=== PATIENT | male | born 1995 | race Caucasian/White ===

== ENCOUNTER 2019-01-09 16:40 | Emergency (ER) | payer OTHER ==
--- NOTE | 2019-01-09 16:59 | PDOC ---
Rapid Medical Evaluation Chief Complaint: Overdose Medical Evaluation: 01/09/19 16:55 I have performed a brief in-person evaluation of this patient. The patient presents with a chief complaint of: inhalation injury- using "dustoff" computer dry cleaner hand huffing- is intoxicated and jittery, + LOC with incontinence of urine - roused ~ 1 hour ago. Pertinent physical exam findings: Inhaltion - rehabing from Benzos/etoh pupils dialted I have ordered the following: taken to bed 9 for immediate eval. The patient will proceed to the ED for further evaluation 01/09/19 16:58 01/09/19 17:20
[2019-01-09 17:00] VITALS: BP 139/73; PULSE 84; TEMP 98.4; BMI 29.4
--- NOTE | 2019-01-10 09:46 | PDOC ---
History of Present Illness - General Chief Complaint: Overdose Stated Complaint: INHALER OVERUSE Time Seen by Provider: 01/09/19 17:25 History Source: Patient Exam Limitations: No Limitations - History of Present Illness Initial Comments: 01/10/19 09:41 Patient is a 23M with history of alcohol and benzo abuse here today after being found to have been huffing Dustoff computer spray. Patient states that he has been doing this for the past several days to get high. Patient state that he lost consciousness and became incontinent of urine, which is normal when he does this. Patient was found by his sober living facility. This happened on at 1pm. Patient states that he is now in his normal state of health. Patient is concerned that he must leave quickly in order to get into a new sober living facility. Past History - Past Medical History Allergies/Adverse Reactions: Allergies Allergy/AdvReac Type Severity Reaction Status Date / Time No Known Allergies Allergy Verified 01/09/19 16:56 COPD: No - Immunization History Immunization Up to Date: Yes - Suicide/Smoking/Psychosocial Hx Smoking History: Never smoked Hx Alcohol Use: No Drug/Substance Use Hx: No Review of Systems - Review of Systems Able to Perform ROS?: Yes Comments:: 01/10/19 09:43 GENERAL/CONSTITUTIONAL: No fever or chills. No weakness. HEAD, EYES, EARS, NOSE AND THROAT: No change in vision.No sore throat. CARDIOVASCULAR: No chest pain or shortness of breath RESPIRATORY: No cough, wheezing, or hemoptysis. GASTROINTESTINAL: No nausea, vomiting, diarrhea or constipation. GENITOURINARY: No dysuria, frequency, or change in urination. MUSCULOSKELETAL: No joint or muscle swelling or pain. No neck or back pain. SKIN: No rash NEUROLOGIC: No headache, vertigo, +loss of consciousness, no change in strength/ sensation. ENDOCRINE: No increased thirst. No abnormal weight change HEMATOLOGIC/LYMPHATIC: No anemia, easy bleeding, or history of blood clots. ALLERGIC/IMMUNOLOGIC: No hives or skin allergy. *Physical Exam - Vital Signs Last Vital Signs Temp Pulse Resp BP Pulse Ox 98.4 F 84 16 139/73 100 01/09/19 16:56 01/09/19 16:56 01/09/19 16:56 01/09/19 16:56 01/09/19 17:58 - Physical Exam Comments: 01/10/19 09:43 GENERAL: Awake, alert, and fully oriented, in no acute distress HEAD: No signs of trauma, normocephalic, atraumatic EYES: PERRLA, EOMI, sclera anicteric, conjunctiva clear ENT: Auricles normal inspection, hearing grossly normal, nares patent, oropharynx clear without exudates. Moist mucosa NECK: Normal ROM, supple, no lymphadenopathy, JVD, or masses LUNGS: No distress, speaks full sentences, clear to auscultation bilaterally HEART: Regular rate and rhythm, normal S1 and S2, no murmurs, rubs or gallops, peripheral pulses normal and equal bilaterally. ABDOMEN: Soft, nontender, normoactive bowel sounds. No guarding, no rebound. No masses EXTREMITIES: Normal inspection, Normal range of motion, no edema. No clubbing or cyanosis. NEUROLOGICAL: Cranial nerves II through XII grossly intact. Normal speech, normal gait, no focal sensorimotor deficits SKIN: Warm, Dry, normal turgor, no rashes or lesions noted. Moderate Sedation - Procedure Monitoring Vital Signs: Procedure Monitoring Vital Signs Temperature 98.4 F 01/09/19 16:56 Pulse Rate 84 01/09/19 16:56 Respiratory Rate 16 01/09/19 16:56 Blood Pressure 139/73 01/09/19 16:56 O2 Sat by Pulse Oximetry (%) 100 01/09/19 17:58 ED Treatment Course - RADIOLOGY Radiology Studies Ordered: Category Date Time Status CHEST PA & LAT [RAD] Stat Radiology 01/09/19 17:32 Completed Medical Decision Making - Medical Decision Making 01/10/19 09:43 Patient is 23M here today with inhalant abuse. Vitals normal and stable. Poison control contacted, recommends CXR and EKG to evaluate for arrhythmias, inhalation injury and pneumothorax. Will also do labs for possible aplastic anemia and metabolic derangements. Patient is fully alert and oriented, also clinically sober. Patient states that they may have to leave to make sober living arrangements. Advised not to leave until medical evaluation completed. Patient eloped. Delay in note completion caused by [employer] downtime. *DC/Admit/Observation/Transfer Diagnosis at time of Disposition: Overdose - Discharge Dispostion Disposition: ELOPED Condition at time of disposition: Stable - Referrals - Patient Instructions - Post Discharge Activity
--- NOTE | 2019-01-10 09:49 | PDOC ---
Attending Attestation - Resident Resident Name: Bartolo Ngo - ED Attending Attestation I have performed the following: I have examined & evaluated the patient, The case was reviewed & discussed with the resident, I agree w/resident's findings & plan, Exceptions are as noted - HPI HPI: NOTE ENTERED AFTER UNSCHEDULED DOWNTIME 01/10/19 09:42 The patient is a 23 year old male with no significant past medical history who presents to the emergency department after huffing dust-off today. The patient was found unresponsive by staff at his group home house. At time of ED evaluation, pt is awake, alert, with no complaints. He admits to inhaling dust-off aerosol to get high. He denies any other drugs/ETOH. Denies SI/HI/AVH. Pt states that he has been huffing for the past 3 days. He notes that typically when he gets high, he passes out and wakes up shortly afterwards. - Physicial Exam PE: 01/10/19 09:47 GENERAL: Awake, alert, and fully oriented, in no acute distress. HEAD: No signs of trauma EYES: PERRLA, EOMI, sclera anicteric, conjunctiva clear ENT: Auricles normal inspection, hearing grossly normal, nares patent, oropharynx clear without exudates. Moist mucosa NECK: Nontender, no stepoffs, Normal ROM, supple, no lymphadenopathy, JVD, or masses LUNGS: Breath sounds equal, clear to auscultation bilaterally. No wheezes, and no crackles HEART: Regular rate and rhythm, normal S1 and S2, no murmurs, rubs or gallops ABDOMEN: Soft, nontender, normoactive bowel sounds. No guarding, no rebound. No masses EXTREMITIES: Normal range of motion, no edema. No clubbing or cyanosis. No cords, erythema, or tenderness NEUROLOGICAL: Cranial nerves II through XII intact. 5/5 strength and sensation in all extremities, Normal speech, normal gait, normal cerebellar function SKIN: Warm, Dry, normal turgor, no rashes or lesions noted. - Medical Decision Making 01/10/19 09:49 23 M BIBEMS after being found unresponsive after huffing dust-off. Pt now awake , alert, clinically sober, with no evidence of intoxication. Pt denies SI/HI/ AVH or any attempt at self harm. Dr. Ngo spoke with poison control, who recommended CXR and EKG. Given pt's repeated inhalation of dust-off over the past few days, I also recommended basic labwork, which patient agreed to. However, pt expressed that he needed to leave in order to secure a spot at his group home before it closes. Pt eloped from ED prior to studies being completed Pt was clinically sober and appeared to have capacity to make decisions at time of evaluation.
== END 2019-01-09 19:00 | disposition left against medical advice (07) ==
LOC: JER 16:40
DX: T65.891A Toxic effect of other specified substances, accidental (unintentional), initial encounter (principal); F18.188 Inhalant abuse with other inhalant-induced disorder; R55 Syncope and collapse
CPT/HCPCS: 71046-TC-FY; 99284-25